=== PATIENT | male | born 1995 | race Caucasian/White ===

== ENCOUNTER 2024-10-26 17:21 | Emergency (ER) | payer OTHER, SELFPAY ==
--- NOTE | 2024-10-26 17:27 | ED_ITS ---
<Statement entered by Priscilla Talley DO - 10/26/24 23:14> I was consulted by the ADOLPH, and we discussed the complexity of the problems being addressed. I approved the treatment and management plan for this patient's care in the emergency department, thus performing a substantive portion of the medical decision making. Priscilla Talley DO Discharge Plan Disposition Patient Disposition: Home, Self-Care Condition: Good Prescriptions Prescriptions: New ondansetron 4 mg tablet,disintegrating 4 mg PO QID PRN (Reason: nausea and vomiting) Qty: 10 0RF No Action Mounjaro 2.5 mg/0.5 mL Pen Injector 2 mg SQ WEEKLY Referrals Follow up/Referrals: Provider,Referral, MD [Primary Care Provider] - See instructions Activity Restrictions/Add. Instructions Additional Instructions/Restrictions: As we discussed I recommend discontinuing the Mounjaro. I recommend taking Zofran at the first sign of nausea or abdominal discomfort. Reintroduce your diet slowly. Follow-up with your PCP within 48 hours for recheck sooner if you have new problems or return to the ER as needed. Clinical Impressions Clinical Impression: Abdominal pain Qualifiers: Abdominal location: upper abdomen, unspecified Qualified Code(s): R10.10 - Upper abdominal pain, unspecified Instructions Patient Instructions: DI for Acute Abdominal Pain Print Language Print Language: French Discharge ED Provider: Priscilla Talley General Adult HPI <FEROZ Weldon - Last Filed: 10/26/24 22:06> General Chief complaint: Abdominal Pain Stated complaint: abdominal pain Time Seen by Provider: 10/26/24 17:27 History of Present Illness HPI narrative: Patient presents for evaluation of acute upper abdominal pain. Patient has had 3 days of increasing consistent and persistent epigastric abdominal pain. Patient has been started on Mounjaro recently and took a shot on Friday. Patient reports that he has had epigastric abdominal pain and vomiting since that is intensified over the past 3 days. 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 He denies any fever chills hemoptysis hematochezia melena diarrhea but has had nausea and vomiting. Related Data Home Medications ?Medication ?Instructions ?Recorded ?Confirmed tirzepatide 2.5 mg/0.5 mL 2 mg SQ WEEKLY 10/26/24 10/26/24 subcutaneous pen injector ([place]) Previous Rx's ?Medication ?Instructions ?Recorded ondansetron 4 mg disintegrating 4 mg PO QID PRN nausea and 10/26/24 tablet vomiting #10 tabs Allergies Allergy/AdvReac Type Severity Reaction Status Date / Time Sulfa (Sulfonamide Allergy Blister Verified 10/26/24 17:48 Antibiotics) [facility] <FEROZ Weldon - Last Filed: 10/26/24 22:06> [facility] Disclaimer: The information contained in this section may have been updated after the patient was seen, as this information can be updated by other users. Social History Smoking Status: Never smoker alcohol intake: never current occupational status: employed Travel in the last 8 weeks: None <FEROZ Weldon - Last Filed: 10/26/24 22:06> ROS Obtained: Yes Systems reviewed as appropriate & no additional complaints except as documented Physical Exam <FEROZ Weldon - Last Filed: 10/26/24 22:06> General General appearance: alert and in no apparent distress Respiratory Respiratory exam: Present normal lung sounds bilaterally and accessory muscle use Cardiovascular Cardiovascular exam: Present regular rate Neurological Exam Neurological exam: Present alert and oriented X3 Medical Decision Making <FEROZ Weldon - Last Filed: 10/26/24 22:06> Medical Records Medical records reviewed: Yes I reviewed the patient's medical records. Screening: Per USPSTF and CDC recommendations, given the prevalence of disease in our region, it is our hospital?s policy to screen for HIV and viral Hepatitis for all patients aged 18 and over and those with ongoing risk factors. Cipriano Inquiry Pt receiving controlled substance: No Vital Signs: 10/26/24 17:31 10/26/24 18:03 10/26/24 18:31 Temperature 97.9 F Temperature Source Oral Pulse Rate 86 77 Pulse Rate [Right] 100 H Respiratory Rate 24 Blood Pressure 139/89 126/79 Blood Pressure [Right Arm] 158/95 H Blood Pressure Mean [Right Arm] 116 Blood Pressure Source Blood Pressure Position 02 Sat by Pulse Oximetry 100 98 96 Oxygen Delivery Method Room Air 10/26/24 19:00 10/26/24 19:45 Temperature 97.9 F Temperature Source Oral Pulse Rate 64 82 Pulse Rate [Right] Respiratory Rate 16 Blood Pressure 119/77 136/94 H Blood Pressure [Right Arm] Blood Pressure Mean [Right Arm] Blood Pressure Source Automatic Cuff Blood Pressure Position Supine 02 Sat by Pulse Oximetry 96 Oxygen Delivery Method Room Air Lab Data Lab results reviewed: Yes I reviewed the patient's lab results. Lab Results 10/26/24 17:45: WBC 11.2 H, RBC 6.78 H, Hgb 17.7, Hct 52.5 H, MCV 77.4 L, MCH 26.1 L, MCHC 33.7, RDW 15.9, Plt Count 232, MPV 10.3, Neut % (Auto) 70.8, Lymph % (Auto) 23.0, [place] % (Auto) 4.6, Eos % (Auto) 0.9, Baso % (Auto) 0.4, Neut # (Auto) 8.0 H, Lymph # (Auto) 2.6, [place] # (Auto) 0.5, Eos # (Auto) 0.1, Baso # (Auto) 0.1, PT 10.7, INR 0.97, Sodium 143, Potassium 4.1, Chloride 106, Carbon Dioxide 20 L, Anion Gap 21.1 H, BUN 14, Creatinine 1.10, Estimated Creat Clear 150, Estimated GFR 78, Est GFR ( Amer) 94, Glucose 112 H, Lactate 1.4, C alcium 10.6 H, Magnesium 1.9, Total Bilirubin 0.9, AST 33, ALT 35, Alkaline Phosphatase 86, Total Protein 8.4 H, Albumin 5.7 H, Globulin 2.7, A lbumin/Globulin Ratio 2.1 H, Lipase 96 10/26/24 17:45 10/26/24 17:45 Orders (Tests/Meds): ED MEDICATIONS Discontinued Medications Generic Name Dose Route Start Last Admin Trade Name Freq PRN Reason Stop Dose Admin Acetaminophen 1,000 mg 10/26/24 17:31 10/26/24 17:39 Acetaminophen 1,000mg/100ml Vial IV 10/26/24 17:32 1,000 mg ONCE ONE Administration Hydromorphone HCl 1 mg 10/26/24 17:31 10/26/24 17:39 Hydromorphone 2mg/Ml Syringe IV 10/26/24 17:32 1 mg ONCE ONE Administration Iopamidol 75 ml 10/26/24 18:05 10/26/24 18:06 Iopamidol-370 (76%);100ml Bottle IV 10/26/24 18:06 75 ml ONCE ONE Administration Promethazine HCl 12.5 mg 10/26/24 17:43 10/26/24 17:47 Promethazine Hcl 25mg/Ml 1ml Vial IV 10/26/24 17:44 12.5 mg ONCE ONE Administration Sodium Chloride 25 ml 10/26/24 17:43 10/26/24 17:47 Sodium Chloride 0.9% 25ml Bag IV 10/26/24 17:44 25 ml ONCE ONE Administration Sodium Chloride 10 ml 10/26/24 18:05 10/26/24 18:06 Sodium Chloride 0.9% 10ml Syr (Rad Only) IV 11/25/24 18:04 10 ml NEEDED PRN Administration Maintain IV Site ORDERS Category Date Time Status CT abdomen pelvis w con Stat Cat Scan 10/26/24 17:31 Completed CBC w/Auto Diff [Complete Blood Count Auto Diff] Stat Lab 10/26/24 17:45 Completed CMP [Comprehensive Metabolic Panel] Stat Lab 10/26/24 17:45 Completed INR [Prothrombin Time INR] Stat Lab 10/26/24 17:45 Completed Lactic Acid Stat Lab 10/26/24 17:45 Completed Lipase Stat Lab 10/26/24 17:45 Completed Magnesium Stat Lab 10/26/24 17:45 Completed HEART Score History (anamnesis): Slightly suspicious ECG: Normal Age: <45 years Risk factors: 3 or more risk factors Troponin: </= normal limit HEART Score: 2 Medical Decision Narrative: In summary patient is a 29-year-old male who presents to the emergency department for evaluation of epigastric abdominal pain. Patient is initially normotensive 158/95 slightly tachycardic at 100 normal sinus rhythm on the bedside monitor breathing 24 times a minute satting at 100% room air upon arrival, the temperature of 97.9. Physical exam is remarkable for an unwell appearing 29-year-old male who appears to be in acute pain. He is diaphoretic but breath sounds are clear and equal bilaterally to the bases without increased work of breathing or adventitious sounds. Patient has exquisite tenderness in the bilateral upper quadrants but more focally so in the epigastrium and left side. He has no rebound no guarding or rigidity. Bowel sounds normal active.. Differential diagnosis includes ACS versus esophagitis versus gastritis versus gastroparesis versus GLP-1 induced pancreatitis etc. Initial workup will be conducted with hematologic labs CT scan abdomen pelvis with contrast. Initial interventions include crystalloid bolus Zofran Dilaudid. Initial workup reviewed by me and actually his hematologic labs are nonactionable with a normal white count normal lipase and my informal interpretation Tatian of his CT scan abdomen pelvis does not show any acute processes including no pancreatitis or peripancreatic stranding or fluid collection.. Upon repeat evaluation patient actually had complete resolution of his pain after initial intervention and is able to tolerate oral intake now without nausea or vomiting.. Given this I have recommended the patient discontinue the GLP-1 and follow-up closely with his PCP for any continued new or worsening signs or symptoms. I have counseled the patient on dietary management and the fact that he still may have symptoms until the GLP-1 effects of Mounjaro wear off. I have sent a prescription for Zofran to his pharmacy. Patient verbalized understanding and agreement. <Priscilla Talley, - Last Filed: 10/26/24 20:23> Vital Signs: 10/26/24 17:31 10/26/24 18:03 10/26/24 18:31 Temperature 97.9 F Temperature Source Oral Pulse Rate 86 77 Pulse Rate [Right] 100 H Respiratory Rate 24 Blood Pressure 139/89 126/79 Blood Pressure [Right Arm] 158/95 H Blood Pressure Mean [Right Arm] 116 Blood Pressure Source Blood Pressure Position 02 Sat by Pulse Oximetry 100 98 96 Oxygen Delivery Method Room Air 10/26/24 19:00 10/26/24 19:45 Temperature 97.9 F Temperature Source Oral Pulse Rate 64 82 Pulse Rate [Right] Respiratory Rate 16 Blood Pressure 119/77 136/94 H Blood Pressure [Right Arm] Blood Pressure Mean [Right Arm] Blood Pressure Source Automatic Cuff Blood Pressure Position Supine 02 Sat by Pulse Oximetry 96 Oxygen Delivery Method Room Air Lab Data Lab Results 10/26/24 17:45: WBC 11.2 H, RBC 6.78 H, Hgb 17.7, Hct 52.5 H, MCV 77.4 L, MCH 26.1 L, MCHC 33.7, RDW 15.9, Plt Count 232, MPV 10.3, Neut % (Auto) 70.8, Lymph % (Auto) 23.0, [place] % (Auto) 4.6, Eos % (Auto) 0.9, Baso % (Auto) 0.4, Neut # (Auto) 8.0 H, Lymph # (Auto) 2.6, [place] # (Auto) 0.5, Eos # (Auto) 0.1, Baso # (Auto) 0.1, PT 10.7, INR 0.97, Sodium 143, Potassium 4.1, Chloride 106, Carbon Dioxide 20 L, Anion Gap 21.1 H, BUN 14, Creatinine 1.10, Estimated Creat Clear 150, Estimated GFR 78, Est GFR ( Amer) 94, Glucose 112 H, Lactate 1.4, C alcium 10.6 H, Magnesium 1.9, Total Bilirubin 0.9, AST 33, ALT 35, Alkaline Phosphatase 86, Total Protein 8.4 H, Albumin 5.7 H, Globulin 2.7, A lbumin/Globulin Ratio 2.1 H, Lipase 96 Orders (Tests/Meds): ED MEDICATIONS Discontinued Medications Generic Name Dose Route Start Last Admin Trade Name Anne-Marie PRN Reason Stop Dose Admin Acetaminophen 1,000 mg 10/26/24 17:31 10/26/24 17:39 Acetaminophen 1,000mg/100ml Vial IV 10/26/24 17:32 1,000 mg ONCE ONE Administration Hydromorphone HCl 1 mg 10/26/24 17:31 10/26/24 17:39 Hydromorphone 2mg/Ml Syringe IV 10/26/24 17:32 1 mg ONCE ONE Administration Iopamidol 75 ml 10/26/24 18:05 10/26/24 18:06 Iopamidol-370 (76%);100ml Bottle IV 10/26/24 18:06 75 ml ONCE ONE Administration Promethazine HCl 12.5 mg 10/26/24 17:43 10/26/24 17:47 Promethazine Hcl 25mg/Ml 1ml Vial IV 10/26/24 17:44 12.5 mg ONCE ONE Administration Sodium Chloride 25 ml 10/26/24 17:43 10/26/24 17:47 Sodium Chloride 0.9% 25ml Bag IV 10/26/24 17:44 25 ml ONCE ONE Administration Sodium Chloride 10 ml 10/26/24 18:05 10/26/24 18:06 Sodium Chloride 0.9% 10ml Syr (Rad Only) IV 11/25/24 18:04 10 ml NEEDED PRN Administration Maintain IV Site ORDERS Category Date Time Status CT abdomen pelvis w con Stat Cat Scan 10/26/24 17:31 Completed CBC w/Auto Diff [Complete Blood Count Auto Diff] Stat Lab 10/26/24 17:45 Completed CMP [Comprehensive Metabolic Panel] Stat Lab 10/26/24 17:45 Completed INR [Prothrombin Time INR] Stat Lab 10/26/24 17:45 Completed Lactic Acid Stat Lab 10/26/24 17:45 Completed Lipase Stat Lab 10/26/24 17:45 Completed Magnesium Stat Lab 10/26/24 17:45 Completed ECG Data Tracing #1: I reviewed this ECG and interpreted as documented below: Normal sinus rhythm with a ventricular rate of [address] changes concerning for ischemia. Normal intervals. ECG initial impression date: 10/26/24 ECG initial impression time: 18:00 Critical Care <FEROZ Weldon - Last Filed: 10/26/24 22:06> Critical Care Time Critical Care Time: Yes Attestation: On 10/26/24, the high probability of a clinically significant, sudden or life threatening deterioration of the following system(s) required my full and direct attention, intervention and personal management. The time I documented below is in addition to time spent performing reported procedures but includes the following listed in this critical care notation. Total Time Total Critical Care Time: 35
[2024-10-26 17:31] VITALS: BP 158/95; PULSE 100; RESP 24; TEMP 36.6; O2SAT 100; BMI 35.4
--- NOTE | 2024-10-26 17:31 | CT_ITS ---
PROCEDURE INFORMATION: Exam: CT Abdomen And Pelvis With Contrast Exam date and time: 10/26/2024 5:55 PM Age: 29 years old Clinical indication: Abdominal pain; Epigastric; Additional info: Epigastric abdominal pain TECHNIQUE: Imaging protocol: Computed tomography of the abdomen and pelvis with contrast. Radiation optimization: All CT scans at this facility use at least one of these dose optimization techniques: automated exposure control; mA and/or kV adjustment per patient size (includes targeted exams where dose is matched to clinical indication); or iterative reconstruction. Contrast material: ISOVUE; Contrast volume: 75 ml; Contrast route: IV; COMPARISON: No relevant prior studies available. FINDINGS: Liver: Fatty infiltration. Gallbladder and biliary ducts: Cholecystectomy. No significant ductal dilation. Pancreas: Unremarkable. No ductal dilation. Spleen: Mildly enlarged. Adrenal glands: No mass. Kidneys and ureters: Unremarkable. No significant hydronephrosis. Stomach and bowel: No definite mural thickening. No obstruction. Appendix: Normal caliber. No inflammation. Intraperitoneal space: No significant fluid collection. No definite free air. Vasculature: Unremarkable. No aneurysm. Lymph nodes: No pathologically enlarged lymph nodes. Urinary bladder: Borderline wall thickening, up to 4-5 mm. Incomplete distention, limiting evaluation. Reproductive: Unremarkable as visualized. 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 Soft tissues: Unremarkable. IMPRESSION: 1. Mild splenomegaly. 2. Cystitis vs underdistention. Correlate with urinalysis. 3. Hepatic steatosis.
--- NOTE | 2024-10-26 17:34 | ECG_ITS ---
APPROVED REPORT Exam: Resting ECG HR:92 bpm ECG Measurements Heart Rate 92 AXES MO 140 P 49 QRSd 98 QRS 72 QT 354 T 24 QTc 404 Conclusion SINUS RHYTHM NORMAL ECG Electronically signed by : QUYNH FREEMAN, 10/26/2024 23:41:09
--- NOTE | 2024-10-26 17:37 | PC.NURSE ---
FSBS IS 129.
[2024-10-26] MEDS: ACETAMINOPHEN 1,000MG/100ML VIAL 1000 MG IV (17:39)
[2024-10-26] MEDS: HYDROMORPHONE 2MG/ML SYRINGE 1 MG IV (17:39)
[2024-10-26] MEDS: SODIUM CHLORIDE 0.9% 25ML BAG 25 ML IV (17:47)
[2024-10-26] MEDS: PROMETHAZINE HCL 25MG/ML 1ML VIAL 12.5 MG IV (17:47)
[2024-10-26 18:03] VITALS: BP 139/89; PULSE 86; O2SAT 98
[2024-10-26] MEDS: SODIUM CHLORIDE 0.9% 10ML SYR (RAD ONLY) 10 ML IV (18:06)
[2024-10-26] MEDS: IOPAMIDOL-370 (76%);100ML BOTTLE 75 ML IV (18:06)
[2024-10-26 18:08] LABS: Basophils # 0.1 K/mm3 (0-0.2); Basophils % 0.4 % (0.1-2.0); Eosinophils # 0.1 K/mm3 (0.0-0.4); Eosinophils % 0.9 % (0.1-12.0); Hematocrit 52.5 % (42.0-52.0); Hemoglobin 17.7 g/dL (14.1-18.0); Lymphocytes # 2.6 K/mm3 (0.7-4.5); Mean Corpuscular HGB Conc 33.7 g/dL (31.8-35.4); Mean Corpuscular Hemoglobin 26.1 pg (27.0-31.2); Mean Corpuscular Volume 77.4 fl (80-94); Mean Platelet Volume 10.3 fl (7.4-10.4); Monocytes # 0.5 K/mm3 (0.1-1.0); Monocytes % 4.6 % (1.7-9.3); Neutrophils % 70.8 % (37.0-80.0); Platelet Count 232 K/mm3 (142-424); Red Blood Count 6.78 M/mm3 (4.60-6.20); Red Cell Distribution Width 15.9 % (11.5-17.5); White Blood Count 11.2 K/mm3 (4.8-10.8)
[2024-10-26 18:26] LABS: INR 0.97 (0.9-1.1); Prothrombin Time 10.7 seconds (9.2-12.1)
[2024-10-26 18:31] VITALS: BP 126/79; PULSE 77; O2SAT 96
[2024-10-26 18:47] LABS: Albumin Level 5.7 g/dl (3.5-5.0); Chloride 106 mmol/L (98-107); Potassium 4.1 mmoL/L (3.5-5.1); Sodium 143 mmol/L (136-145)
[2024-10-26 18:49] LABS: Blood Urea Nitrogen 14 mg/dl (9-20); Creatinine Clearance Estimated 150 mL/min (50-200); Estimated Glomerular Filt Rate 78 ml/min (>60); GFR (African American) 94 ML/MIN (>60); Lactic Acid 1.4 mmol/L (0.7-2.1)
[2024-10-26 18:50] LABS: Alanine Aminotransferase 35 U/L (12-78); Albumin/Globulin Ratio 2.1 (1.1-1.8); Alkaline Phosphatase 86 U/L (38-126); Anion Gap 21.1 mEq/L (5-15); Aspartate Amino Transferase 33 U/L (17-59); Bilirubin,Total 0.9 mg/dl (0.2-1.3); Calcium 10.6 mg/dl (8.4-10.2); Carbon Dioxide 20 mmol/L (22.0-30.0); Globulin 2.7 g/dL (1.3-3.2); Glucose 112 mg/dl (74-100); Lipase 96 U/L (23-300); Magnesium 1.9 mg/dl (1.6-2.3); Total Protein,Serum 8.4 g/dl (6.3-8.2)
[2024-10-26 19:00] VITALS: BP 119/77; PULSE 64; O2SAT 96
[2024-10-26 19:45] VITALS: BP 136/94; PULSE 82; RESP 16; TEMP 36.6; O2SAT 98
--- NOTE | 2024-10-26 19:46 | PC.NURSE ---
IV removed. Catheter tip intact. Bleeding controlled
== END 2024-10-26 19:55 | disposition home or self-care (01) ==
PROVIDERS: Physician Assistant; Emergency Provider Emergency Medicine
DX: R10.13 Epigastric pain (principal); R11.10 Vomiting, unspecified
CPT/HCPCS: 74177; 80053; 83605; 83690; 83735; 85025; 85610; 93005; 96374; 96375; 99291; J0131; J1171; J2550; Q9967

== ENCOUNTER 2024-10-27 12:41 | Emergency (ER) | payer OTHER, SELFPAY ==
[2024-10-27 13:01] VITALS: BP 161/97; PULSE 97; RESP 99; TEMP 36.9; O2SAT 98; BMI 35.4
--- NOTE | 2024-10-27 13:39 | ED_ITS ---
<Statement entered by Priscilla Talley DO - 10/27/24 23:41> I was consulted by the ADOLPH, and we discussed the complexity of the problems being addressed. I approved the treatment and management plan for this patient's care in the emergency department, thus performing a substantive portion of the medical decision making. Priscilla Talley DO Discharge Plan Disposition Patient Disposition: Home, Self-Care Condition: Good Prescriptions Prescriptions: No Action Mounjaro 2.5 mg/0.5 mL Pen Injector 2 mg SQ WEEKLY ondansetron 4 mg tablet,disintegrating 4 mg PO QID PRN (Reason: nausea and vomiting) Qty: 10 0RF Referrals Follow up/Referrals: Tonya Andrews MD [Primary Care Provider] - See instructions Activity Restrictions/Add. Instructions Additional Instructions/Restrictions: As we discussed I highly recommend complete cessation of marijuana forever. You are likely have recurrence no matter what form it comes in. You may utilize the hot showers if it gives you relief. I have also sent you in Zofran yesterday. If you have continued new or worsening signs or symptoms follow-up with your PCP or return to the ER as needed Clinical Impressions Clinical Impression: Abdominal pain, acute, Cannabis hyperemesis syndrome concurrent with and due to cannabis dependence Instructions Patient Instructions: DI for Acute Abdominal Pain Print Language Print Language: Bruneian Discharge ED Provider: David Burgess General Adult HPI <FEROZ Weldon - Last Filed: 10/27/24 23:34> General Chief complaint: Abdominal Pain Stated complaint: abd pain Time Seen by Provider: 10/27/24 13:39 Mode of Arrival: Ambulatory Source of Information: Patient Description of Symptoms (Recalled from ER Triage Doc. by RN): Pt presents for evaluation of RUQ abdominal since friday. Pt states he was seen here last night for it but had a negative workup. Pt states he has n/v. He has taken zofran. History of Present Illness HPI narrative: Patient presents for evaluation of upper abdominal pain. Patient was seen and evaluated by me yesterday for acute bilateral upper quadrant abdominal pain nausea and vomiting. Patient had relief and was tolerating oral intake upon discharge however he reports that it came back today. He denies any new findings but is intolerant of oral intake. Zofran has not helped. He denies fever chills hemoptysis hematochezia melena nausea vomit diarrhea. Patient's friend who accompanies him noted that the only thing that has helped him was taking hot showers today. Given that history I question the patient on his marijuana use and turns out he is actually been using marijuana daily with dispensary grade marijuana for his anxiety. He does not report an increase in his usage but has not used since he started having abdominal pain on Friday. Related Data Home Medications ?Medication ?Instructions ?Recorded ?Confirmed tirzepatide 2.5 mg/0.5 mL 2 mg SQ WEEKLY 10/26/24 10/26/24 subcutaneous pen injector (Mounjaro) Previous Rx's ?Medication ?Instructions ?Recorded ondansetron 4 mg disintegrating 4 mg PO QID PRN nausea and 10/26/24 tablet vomiting #10 tabs Allergies Allergy/AdvReac Type Severity Reaction Status Date / Time Sulfa (Sulfonamide Allergy Blister Verified 10/26/24 17:48 Antibiotics) [facility] <FEROZ Weldon - Last Filed: 10/27/24 23:34> [facility] Disclaimer: The information contained in this section may have been updated after the patient was seen, as this information can be updated by other users. Social History (Updated 10/26/24 @ 22:06 by FEROZ Weldon) Smoking Status: Current every day smoker alcohol intake: never current occupational status: employed Travel in the last 8 weeks: None Have you lived/traveled outside US in past 30 days?: No Contact w/someone who lives/traveled outside US past 30 days?: No Exposure to someone with infectious disease in past 14 days?: No Do you have a fever (greater than 100.4 F or 38 C)?: No Have you tested positive for COVID-19: No Exposed to someone with COVID-19 in past 14 days?: No Do you have a sore throat?: No Do you have a cough?: No Do you have any weakness?: No Do you have any diarrhea?: No Are you experiencing any unusual bleeding?: No Do you have any muscle aches/pain?: No Do you have any abdominal pain?: Yes Are you experiencing loss of taste or smell?: No <FEROZ Weldon - Last Filed: 10/27/24 23:34> ROS Obtained: Yes Systems reviewed as appropriate & no additional complaints except as documented Physical Exam <FEROZ Weldon - Last Filed: 10/27/24 23:34> General General appearance: alert and in no apparent distress Respiratory Respiratory exam: Present normal lung sounds bilaterally Cardiovascular Cardiovascular exam: Present regular rate Abdominal Exam Abdominal exam: Present rebound Neurological Exam Neurological exam: Present alert and oriented X3 Medical Decision Making <FEROZ Weldon - Last Filed: 10/27/24 23:34> Medical Records Medical records reviewed: Yes I reviewed the patient's medical records. Screening: Per USPSTF and CDC recommendations, given the prevalence of disease in our region, it is our hospital?s policy to screen for HIV and viral Hepatitis for all patients aged 18 and over and those with ongoing risk factors. Cipriano Inquiry Pt receiving controlled substance: No Vital Signs: 10/27/24 13:01 10/27/24 13:50 10/27/24 14:00 Temperature 98.5 F Temperature Source Oral Pulse Rate 95 H 85 Pulse Rate [Right] 97 H Respiratory Rate 99 H Blood Pressure 136/89 123/80 Blood Pressure [Right Arm] 161/97 H Blood Pressure Mean Blood Pressure Mean [Right Arm] 118 Blood Pressure Source [Right Arm] Automatic Cuff Blood Pressure Position [Right Arm] Sitting 02 Sat by Pulse Oximetry 98 99 99 Oxygen Delivery Method Room Air Room Air Room Air 10/27/24 14:30 10/27/24 16:54 Temperature 98.5 F Temperature Source Pulse Rate 77 77 Pulse Rate [Right] Respiratory Rate 18 Blood Pressure 126/92 H 126/92 H Blood Pressure [Right Arm] Blood Pressure Mean 99 Blood Pressure Mean [Right Arm] Blood Pressure Source [Right Arm] Blood Pressure Position [Right Arm] 02 Sat by Pulse Oximetry 97 Oxygen Delivery Method Room Air Lab Data Lab results reviewed: Yes I reviewed the patient's lab results. Lab Results 10/27/24 13:56: WBC 14.1 H D, RBC 6.90 H, Hgb 18.3 H, Hct 53.3 H, MCV 77.2 L, M CH 26.5 L, MCHC 34.3, RDW 16.3, Plt Count 261, MPV 10.4, Neut % (Auto) 72.2, Lymph % (Auto) 19.3, Josephine % (Auto) 7.3, Eos % (Auto) 0.4, Baso % (Auto) 0.4, N eut # (Auto) 10.2 H, Lymph # (Auto) 2.7, Josephine # (Auto) 1.0, Eos # (Auto) 0.1, Baso # (Auto) 0.1, Sodium 142, Potassium 3.9, Chloride 105, Carbon Dioxide 23, A nion Gap 17.9 H, BUN 19 D, Creatinine 1.30 H, Estimated Creat Clear 127, Estimated GFR 64, Est GFR ( Amer) 78, Glucose 130 H, Calcium 10.5 H, Total Bilirubin 0.7, AST 38, ALT 38, Alkaline Phosphatase 73, Total Protein 9.3 H, Albumin 5.8 H, Globulin 3.5 H, Albumin/Globulin Ratio 1.7, Lipase 66 10/27/24 13:56 10/27/24 13:56 Orders (Tests/Meds): ED MEDICATIONS Discontinued Medications Generic Name Dose Route Start Last Admin Trade Name Freq PRN Reason Stop Dose Admin Belladonna Alkaloids 60 ml 10/27/24 13:40 10/27/24 14:10 Belladonna Alkaloids 60 Ml Ml PO 10/27/24 13:41 60 ml ONCE ONE Administration Diphenhydramine HCl 50 mg 10/27/24 15:04 10/27/24 15:04 Diphenhydramine 50mg/Ml Vial IV 10/27/24 15:05 50 mg ONCE ONE Administration Droperidol 2.5 mg 10/27/24 14:00 10/27/24 14:44 Droperidol 5mg/2ml Vial IV 10/27/24 14:01 2.5 mg ONCE ONE Administration Ondansetron HCl 4 mg 10/27/24 13:40 10/27/24 14:10 Ondansetron 4mg/2ml Vial IV 10/27/24 13:41 4 mg ONCE ONE Administration ORDERS Category Date Time Status CBC w/Auto Diff [Complete Blood Count Auto Diff] Stat Lab 10/27/24 13:56 Completed CMP [Comprehensive Metabolic Panel] Stat Lab 10/27/24 13:56 Completed Lipase Stat Lab 10/27/24 13:56 Completed Medical Decision Narrative: David Burgess: I was consulted by the ADOLPH, and we discussed the complexity of the problems being addressed. I approved the treatment and management plan for this patient's care in the emergency department, thus performing a substantive portion of the medical decision making. Patient has intractable vomiting, initial workup no critical electrolyte abnormality, he does have a slight elevation in his creatinine without ASHLEIGH per rifle criteria. Has received droperidol and undergone p.o. trial when he had akathisia for which Benadryl was administered and repeat evaluation pending at time of transfer of care to the oncoming physician, Dr. Talley. Rene Karen: In summary patient is a 29-year-old male who presents to the emergency department for evaluation of recurrent right upper quadrant abdominal pain nausea vomiting. Patient is initially hypertensive with a blood pressure 161/97 heart rate of 97 sinus rhythm on the bedside monitor breathing 18 times a minute satting at 98% on room air upon arrival, afebrile at 98.5. Physical exam again is remarkable for mild bilateral upper quadrant tenderness without rebound or guarding or rigidity normal bowel sounds. Differential diagnosis includes cannabis hyperemesis syndrome versus possible gastroparesis versus pancreatitis. I considered other diagnoses including ulcer colitis however given the interview and his history that is classic for cannabis hyper emesis syndrome those other diagnoses were not pursued. Initial workup will be conducted with repeat hematologic labs.. Initial interventions include crystalloid bolus Zofran and GI cocktail. Initial workup reviewed by me shows that his hematologic labs are nonactionable and he continues to have an normal lipase. Upon repeat evaluation GI cocktail did not relieve his symptoms. Given this the patient was placed in observation status at 1430. Medical necessity for observational status is continuous cardiac monitoring and pulse oximetry after administration of droperidol. The patient was provided serial reevaluations while awaiting results. Patient had a reaction to the droperidol for which Benadryl was given with good response and cessation of his symptoms. After the 2-hour observation. Patient is tolerating p.o. and is completely symptom-free for both his abdominal pain nausea and symptoms of the droperidol that he had suffered earlier. Thus patient is appropriate for discharge with recommendations for complete marijuana cessation and close follow-up with his PCP for any continued new or worsening signs or symptoms understanding agreement. Total time in observation was 2 hours. <David Burgess MD - Last Filed: 10/27/24 15:10> Vital Signs: 10/27/24 13:01 10/27/24 13:50 10/27/24 14:00 Temperature 98.5 F Temperature Source Oral Pulse Rate 95 H 85 Pulse Rate [Right] 97 H Respiratory Rate 99 H Blood Pressure 136/89 123/80 Blood Pressure [Right Arm] 161/97 H Blood Pressure Mean Blood Pressure Mean [Right Arm] 118 Blood Pressure Source [Right Arm] Automatic Cuff Blood Pressure Position [Right Arm] Sitting 02 Sat by Pulse Oximetry 98 99 99 Oxygen Delivery Method Room Air Room Air Room Air 10/27/24 14:30 10/27/24 16:54 Temperature 98.5 F Temperature Source Pulse Rate 77 77 Pulse Rate [Right] Respiratory Rate 18 Blood Pressure 126/92 H 126/92 H Blood Pressure [Right Arm] Blood Pressure Mean 99 Blood Pressure Mean [Right Arm] Blood Pressure Source [Right Arm] Blood Pressure Position [Right Arm] 02 Sat by Pulse Oximetry 97 Oxygen Delivery Method Room Air Lab Data Lab Results 10/27/24 13:56: WBC 14.1 H D, RBC 6.90 H, Hgb 18.3 H, Hct 53.3 H, MCV 77.2 L, M CH 26.5 L, MCHC 34.3, RDW 16.3, Plt Count 261, MPV 10.4, Neut % (Auto) 72.2, Lymph % (Auto) 19.3, Josephine % (Auto) 7.3, Eos % (Auto) 0.4, Baso % (Auto) 0.4, N eut # (Auto) 10.2 H, Lymph # (Auto) 2.7, Josephine # (Auto) 1.0, Eos # (Auto) 0.1, Baso # (Auto) 0.1, Sodium 142, Potassium 3.9, Chloride 105, Carbon Dioxide 23, A nion Gap 17.9 H, BUN 19 D, Creatinine 1.30 H, Estimated Creat Clear 127, Estimated GFR 64, Est GFR ( Amer) 78, Glucose 130 H, Calcium 10.5 H, Total Bilirubin 0.7, AST 38, ALT 38, Alkaline Phosphatase 73, Total Protein 9.3 H, Albumin 5.8 H, Globulin 3.5 H, Albumin/Globulin Ratio 1.7, Lipase 66 Orders (Tests/Meds): ED MEDICATIONS Discontinued Medications Generic Name Dose Route Start Last Admin Trade Name Freq PRN Reason Stop Dose Admin Belladonna Alkaloids 60 ml 10/27/24 13:40 10/27/24 14:10 Belladonna Alkaloids 60 Ml Ml PO 10/27/24 13:41 60 ml ONCE ONE Administration Diphenhydramine HCl 50 mg 10/27/24 15:04 10/27/24 15:04 Diphenhydramine 50mg/Ml Vial IV 10/27/24 15:05 50 mg ONCE ONE Administration Droperidol 2.5 mg 10/27/24 14:00 10/27/24 14:44 Droperidol 5mg/2ml Vial IV 10/27/24 14:01 2.5 mg ONCE ONE Administration Ondansetron HCl 4 mg 10/27/24 13:40 10/27/24 14:10 Ondansetron 4mg/2ml Vial IV 10/27/24 13:41 4 mg ONCE ONE Administration ORDERS Category Date Time Status CBC w/Auto Diff [Complete Blood Count Auto Diff] Stat Lab 10/27/24 13:56 Completed CMP [Comprehensive Metabolic Panel] Stat Lab 10/27/24 13:56 Completed Lipase Stat Lab 10/27/24 13:56 Completed ECG Data Tracing #1: Independently interpreted by me rate is 85, rhythm is regular, axis borderline rightward deviated, no ST elevation in anatomical contiguous leads, QTc 404. Medical Decision Narrative: David Burgess: I was consulted by the ADOLPH, and we discussed the complexity of the problems being addressed. I approved the treatment and management plan for this patient's care in the emergency department, thus performing a substantive portion of the medical decision making. Patient has intractable vomiting, initial workup no critical electrolyte abnormality, he does have a slight elevation in his creatinine without ASHLEIGH per rifle criteria. Has received droperidol and undergone p.o. trial when he had akathisia for which Benadryl was administered and repeat evaluation pending at time of transfer of care to the oncoming physician, Dr. Talley. Rene Jones: Critical Care <David Burgess MD - Last Filed: 10/27/24 15:10> Critical Care Time Critical Care Time: No
[2024-10-27 13:50] VITALS: BP 136/89; PULSE 95; O2SAT 99
--- NOTE | 2024-10-27 13:59 | ECG_ITS ---
APPROVED REPORT Exam: Resting ECG HR:85 bpm ECG Measurements Heart Rate 85 AXES NV 137 P 37 QRSd 102 QRS 71 QT 362 T 49 QTc 404 Conclusion SINUS RHYTHM NORMAL ECG UNCONFIRMED REPORT Electronically signed by : BOB LAWRENCE, 10/28/2024 06:55:50
[2024-10-27 14:00] VITALS: BP 123/80; PULSE 85; O2SAT 99
[2024-10-27 14:08] LABS: Basophils # 0.1 K/mm3 (0-0.2); Basophils % 0.4 % (0.1-2.0); Eosinophils # 0.1 K/mm3 (0.0-0.4); Eosinophils % 0.4 % (0.1-12.0); Lymphocytes # 2.7 K/mm3 (0.7-4.5); Mean Corpuscular Hemoglobin 26.5 pg (27.0-31.2); White Blood Count 14.1 K/mm3 (4.8-10.8)
[2024-10-27] MEDS: BELLADONNA ALKALOIDS 60 ML ML PO (14:10)
[2024-10-27] MEDS: ONDANSETRON 4MG/2ML VIAL 4 MG IV (14:10)
[2024-10-27 14:18] LABS: Hematocrit 53.3 % (42.0-52.0); Lymphocytes % 19.3 % (10-50); Mean Corpuscular HGB Conc 34.3 g/dL (31.8-35.4); Mean Corpuscular Volume 77.2 fl (80-94); Mean Platelet Volume 10.4 fl (7.4-10.4); Monocytes % 7.3 % (1.7-9.3); Neutrophils # 10.2 K/mm3 (1.8-7.8); Neutrophils % 72.2 % (37.0-80.0); Platelet Count 261 K/mm3 (142-424); Red Cell Distribution Width 16.3 % (11.5-17.5)
[2024-10-27 14:19] LABS: Hemoglobin 18.3 g/dL (14.1-18.0)
[2024-10-27 14:30] VITALS: BP 126/92; PULSE 77; O2SAT 97
[2024-10-27 14:31] LABS: Albumin Level 5.8 g/dl (3.5-5.0); Chloride 105 mmol/L (98-107); Potassium 3.9 mmoL/L (3.5-5.1); Sodium 142 mmol/L (136-145)
[2024-10-27 14:33] LABS: Blood Urea Nitrogen 19 mg/dl (9-20); Creatinine Clearance Estimated 127 mL/min (50-200); Estimated Glomerular Filt Rate 64 ml/min (>60); GFR (African American) 78 ML/MIN (>60)
[2024-10-27 14:34] LABS: Alanine Aminotransferase 38 U/L (12-78); Albumin/Globulin Ratio 1.7 (1.1-1.8); Alkaline Phosphatase 73 U/L (38-126); Anion Gap 17.9 mEq/L (5-15); Aspartate Amino Transferase 38 U/L (17-59); Bilirubin,Total 0.7 mg/dl (0.2-1.3); Calcium 10.5 mg/dl (8.4-10.2); Carbon Dioxide 23 mmol/L (22.0-30.0); Globulin 3.5 g/dL (1.3-3.2); Glucose 130 mg/dl (74-100); Total Protein,Serum 9.3 g/dl (6.3-8.2)
[2024-10-27] MEDS: droPERidol 5MG/2ML VIAL 2.5 MG IV (14:44)
[2024-10-27] MEDS: diphenhydrAMINE 50MG/ML VIAL 50 MG IV (15:04)
[2024-10-27 15:44] LABS: Lipase 66 U/L (23-300)
[2024-10-27 16:54] VITALS: BP 126/92; PULSE 77; RESP 18; TEMP 36.9; O2SAT 97
== END 2024-10-27 16:55 | disposition home or self-care (01) ==
PROVIDERS: Physician Assistant; Emergency Provider Emergency Medicine; PCP Family Medicine
DX: F12.288 Cannabis dependence with other cannabis-induced disorder (principal); R10.11 Right upper quadrant pain; R11.2 Nausea with vomiting, unspecified; Z72.0 Tobacco use
CPT/HCPCS: 80053; 83690; 85025; 93005; 96374; 96375; 99283; J1200; J1790; J2405

== ENCOUNTER 2025-04-21 16:41 | Outpatient (CLI) | payer OTHER, SELFPAY ==
[2025-04-21 22:17] LABS: Albumin Level 4.9 g/dl (3.5-5.0); Chloride 105 mmol/L (98-107); Potassium 4.6 mmoL/L (3.5-5.1); Sodium 140 mmol/L (136-145)
[2025-04-21 22:19] LABS: Alanine Aminotransferase 26 U/L (12-78); Albumin/Globulin Ratio 2.0 (1.1-1.8); Alkaline Phosphatase 43 U/L (38-126); Anion Gap 12.6 mEq/L (5-15); Aspartate Amino Transferase 36 U/L (17-59); Bilirubin,Total 0.7 mg/dl (0.2-1.3); Blood Urea Nitrogen 11 mg/dl (9-20); Calcium 9.5 mg/dl (8.4-10.2); Carbon Dioxide 27 mmol/L (22.0-30.0); Creatinine,Serum 0.90 mg/dl (0.66-1.25); Estimated Glomerular Filt Rate 98 ml/min (>60); GFR (African American) 119 ML/MIN (>60); Globulin 2.5 g/dL (1.3-3.2); Glucose 88 mg/dl (74-100); Lipase 115 U/L (23-300); Total Protein,Serum 7.4 g/dl (6.3-8.2)
--- OUTSIDE RECORDS SUMMARY | 2025-04-22 12:34 | XMS_ITS | Clinical Summary ---
Author Organization Healthcare Address [address] [place] [address] Care Team Providers Care Electrification Adviser Name Role Phone Pcp, No Primary Care Provider Unavailabl e Allergies No known active allergies Social History Tobacco Use Types Packs/Day Years Used Date Smoking Tobacco: Every Day Alcohol Use Standard Drinks/Week Comments Yes 0 (1 standard drink = 0.6 oz pure alcohol) Alcoholic Drinks/day: Social alcohol use Sex and Gender Information Value Date Recorded Sex Assigned at Not on file Legal Sex Male 7:50 PM EDT Gender Identity Not on file Sexual Orientation Not on file Last Filed Vital Signs Vital Sign Reading Time Taken Comments Blood Pressure 146/83 04/04/2020 11:35 AM EDT Pulse 100 05/03/2020 2:07 PM EDT Temperature - - Respiratory Rate - - Oxygen Saturation - - Inhaled Oxygen Concentration - - Weight 115 kg (252 lb 10.4 oz) 05/03/2020 2:07 P M EDT Height 177.8 cm (5' 10 ) 04/04/2020 11:34 AM EDT Body Mass Index 36.25 04/04/2020 11:34 AM EDT Plan of Treatment Health Maintenance Due Date Last Done Comments [facility]-Depression Screening 1993 [facility]-/Child/Adol SDOH Screenings 1993 [facility]-Varicella Vaccines (1 of 2 - 13+ 2-dose series) 2006 [facility]- SDOH Screenings 2011 [facility]-Adult SDOH Screenings 2011 [facility]-Hepatitis B Vaccines (1 of 3 - 19+ 3-dose series) 2012 HPV Vaccines (1 - 3-dose SCD M series) 2020 [id number]-EBEPD-84 Vaccine (1 - 20 24-25 season) 2024 [facility]-Influenza Vaccine (#1) 2025 [facility]-DTaP,Tdap,and Td Vaccine s (2 - Td or Tdap) 12/16/2025 12/17/2015 [facility]-Zoster Vaccines (1 of 2) 2043 [facility]-Hepatitis A Vaccines Aged Out 03/12/2018 No longer eligible based on patient's age to complete this topic [facility]-HIB Vaccines Aged Out No longer e ligible based on patient's age to complete this topic [facility]-IPV Vaccines Aged Out No longer e ligible based on patient's age to complete this topic [facility]-Pneumococcal Vaccine: Pediatrics (0 to 5 Years) and At-Risk Patients (6 to 49 Years) Aged Out No long er eligible based on patient's age to complete this topic [facility]-Rotavirus Vaccines Aged Out No lo nger eligible based on patient's age to complete this topic Insurance [facility] MEDICAID Care Teams Electrification Adviser Relationship Specialty Start Date [place] [address] PCP - General Family Medicine 11/28/21
--- OUTSIDE RECORDS SUMMARY | 2025-04-22 12:34 | XMS_ITS | Clinical Summary ---
Author Organization [facility] nter Address [address] [place] [address] Care Team Providers Care Manager Testing Name Role Phone Tonya Andrews MD Primary Care Provider [phone] Allergies Active Allergy Reactions Criticality Noted Date Comments Sulfa Drugs 11/26/2022 Medications famotidine (Pepcid) 20 MG tablet Take 1 tablet (20 mg) by mouth in the morning and at bedtime. 05/21/2023 Active pantoprazole (ProtoNix) 40 MG EC tablet Take 1 tablet (40 mg) by mouth in the morning. 05/21/2023 Active Immunizations Immunization Administration Dates Next Due HepB-CpG 08/07/2023,06/27/2023 Social History Tobacco Use Types Packs/Day Years Used Date Smoking Tobacco: Every Day Cigarettes Smokeless Tobacco: Never Tobacco Cessation:Ready to Q uit: No; Counseling Given: Yes Alcohol Use Standard Drinks/Week Comments Yes 0 (1 standard drink = 0.6 oz pur e alcohol) Sex and Gender Information Value Date Recorded Sex Assigned at Male 10/31/2021 12:30 PM EST Legal Sex Male 12:30 PM EST Gender Identity Male 10/31/2021 12:30 PM EST Sexual Orientation Not on file Last Filed Vital Signs Vital Sign Reading Time Taken Comments Blood Pressure 112/79 11/11/2023 8:06 AM EDT Pulse 96 11/11/2023 8:06 AM EDT Temperature 36.9 C (98.4 F) 11/26/2022 2:55 PM EDT Respiratory Rate 18 11/11/2023 8:06 AM EDT Oxygen Saturation 94% 11/11/2023 8:06 AM EDT Inhaled Oxygen Concentration - - Weight 122 kg (269 lb 9.6 oz) 11/11/2023 8:06 AM EDT Height 175.3 cm (5' 9 ) 11/11/2023 8:06 AM EDT Body Mass Index 39.81 11/11/2023 8:06 AM EDT Plan of Treatment Health Maintenance Due Date Last Done Comments Varicella Vaccines (1 of 2 - 13+ 2-dose series) 2006 Pneumococcal Vaccine: Pediatrics (0 to 5 Years) and At-Risk Patients (6 to 49 Years) (1 of 2 - PCV) 2012 Influenza Vaccine (#1) 2025 DTaP/Tdap/Td Vaccines (3 - T d or Tdap) 12/16/2025 12/17/2015, 05/06/1997 MMR Vaccines Completed 05/06/1997 RSV under 20 month Aged Out No longer eligible based on patient's age to complete this topic Insurance MEDICAID Care Teams Manager Testing Relationship Specialty Start Date End Date Tonya Andrews MD [facility] [address] [place] [address] PCP - General Family Medicine 06/26/23
--- OUTSIDE RECORDS SUMMARY | 2025-04-22 12:34 | XMS_ITS | Encounter Summary ---
Author Organization [facility] nter Address [address] [place] [address] Care Team Providers Care Yield Improvement Engineer Name Role Phone Tonya Andrews MD Primary Care Provider [phone] Reason for Visit * Reason Comments Med Refill Encounter Details Date Type Department Care Team (Late st Contact Info) Description 09/13/2023 Refill [facility] [address] [place] [address] Ted Feng MD [address] [place] [address] Social History Tobacco Use Types Packs/Day Years Used Date Smoking Tobacco: Every Day Cigarettes Smokeless Tobacco: Never Alcohol Use Standard Drinks/Week Comments Yes 0 (1 standard drink = 0.6 oz pur e alcohol) Sex and Gender Information Value Date Recorded Sex Assigned at Male 10/31/2021 12:30 PM EST Legal Sex Male 12:30 PM EST Gender Identity Male 10/31/2021 12:30 PM EST Sexual Orientation Not on file documented as of this encounter Miscellaneous Notes * Telephone Encounter - Clarissa Deras MA - 09/18/2023 3:26 PM EST Patient completed therapy. documented in this encounter Plan of Treatment Not on file documented as of this encounter Visit Diagnoses Not on filedocumented in this encounter Care Teams Yield Improvement Engineer Relationship Specialty Start Date End Date Tonya Andrews MD [facility] [place] [address] [place] [address] PCP - General Family Medicine 06/26/23 documented as of this encounter
--- OUTSIDE RECORDS SUMMARY | 2025-04-22 12:34 | XMS_ITS | Encounter Summary ---
Author Organization [facility] nter Address [address] [place] [address] Care Team Providers Care Vba Developer Name Role Phone Tonya Andrews MD Primary Care Provider [phone] Reason for Visit * Reason Comments Med Refill Encounter Details Date Type Department Care Team (Late st Contact Info) Description 09/19/2023 Refill [facility] [address] [place] [address] Ted Feng MD [address] [place] [address] Social History Tobacco Use Types [...] Telephone Encounter - Clarissa Deras MA - 09/19/2023 2:03 PM EST Patient completed therapy. documented in this encounter Plan of Treatment Not on file documented as of this encounter Visit Diagnoses Not on filedocumented in this encounter Care Teams Vba Developer Relationship Specialty Start Date End Date Tonya Andrews MD [facility] [place] [address] [place] [address] PCP - General Family Medicine 06/26/23 documented as of this encounter
--- OUTSIDE RECORDS SUMMARY | 2025-04-22 12:34 | XMS_ITS | Encounter Summary ---
Author Organization [facility] nter Address [address] [place] [address] Care Team Providers Care Care Aide Name Role Phone Tonya Andrews MD Primary Care Provider [phone] Encounter Details Date Type Department Care Team (Late st Contact Info) Description 06/26/2023 Telephone [facility] [address] [place] [address] Trae Gooden, [address] [place] [address] Social History Tobacco Use Types [...] on file documented as of this encounter Plan of Treatment Not on file documented as of this encounter Visit Diagnoses Not on filedocumented in this encounter Care Teams Care Aide Relationship Specialty Start Date End Date Tonya Andrews MD [address] [place] [address] [place] [address] PCP - General Family Medicine 06/26/23 documented as of this encounter
== END 2025-04-21 23:59 | disposition home or self-care (01) ==
LOC: LAB.DROPOF 04-22 12:32
PROVIDERS: PCP Family Medicine; Visit Provider Family Medicine
DX: N17.9 Acute kidney failure, unspecified (principal); R10.10 Upper abdominal pain, unspecified
CPT/HCPCS: 80053; 83690

== ENCOUNTER 2025-04-22 17:51 | Outpatient (CLI) | payer OTHER, SELFPAY ==
--- OUTSIDE RECORDS SUMMARY | 2025-04-22 17:56 | XMS_ITS | Clinical Summary ---
Author Organization Healthcare Address [address] [place] [address] Care Team Providers Care Boot Trimmer Name Role Phone Pcp, No Primary Care [...] (1 - 3-dose SCD M series) 2020 [id number] Vaccine (1 - 20 24-25 season) 2024 [...] patient's age to complete this topic Insurance [facility] MEDICAID Care Teams Boot Trimmer Relationship Specialty Start [place] [address] PCP - General Family Medicine 11/28/21
--- OUTSIDE RECORDS SUMMARY | 2025-04-22 17:56 | XMS_ITS | Encounter Summary ---
Author Organization [facility] nter Address [address] [place] [address] Care Team Providers Care Track Repair Supervisor Name Role Phone Tonya Andrews MD Primary Care Provider [phone] Encounter Details Date Type Department Care Team (Late st Contact Info) Description 06/26/2023 Telephone [facility] [address] [place] [address] Trae Gooden, [address] [place] [address] Social History Tobacco Use Types [...] on filedocumented in this encounter Care Teams Track Repair Supervisor Relationship Specialty Start Date End Date Tonya Andrews MD [address] [place] [address] [place] [address] PCP - General Family Medicine 06/26/23 documented as of this encounter
--- OUTSIDE RECORDS SUMMARY | 2025-04-22 17:56 | XMS_ITS | Encounter Summary ---
Author Organization [facility] nter Address [address] [place] [address] Care Team Providers Care Canadian Bacon Tier Name Role Phone Tonya Andrews MD Primary Care Provider [phone] Reason for Visit * Reason Comments Med Refill Encounter Details Date Type Department Care Team (Late st Contact Info) Description 09/13/2023 Refill [facility] [address] [place] [address] Ted Feng MD [address] [place] [address] Social History Tobacco Use Types [...] on filedocumented in this encounter Care Teams Canadian Bacon Tier Relationship Specialty Start Date End Date Tonya Andrews MD [facility] [place] [address] [place] [address] PCP - General Family Medicine 06/26/23 documented as of this encounter
--- OUTSIDE RECORDS SUMMARY | 2025-04-22 17:56 | XMS_ITS | Encounter Summary ---
Author Organization [facility] nter Address [address] [place] [address] Care Team Providers Care Disc Inspector Name Role Phone Tonya Andrews MD Primary Care Provider [phone] Reason for Visit * Reason Comments Med Refill Encounter Details Date Type Department Care Team (Late st Contact Info) Description 09/19/2023 Refill [facility] [address] [place] [address] Ted Feng MD [address] [place] [address] Social History Tobacco Use Types [...] on filedocumented in this encounter Care Teams Disc Inspector Relationship Specialty Start Date End Date Tonya [place] MD [facility] [place] [address] [place] [address] PCP - General Family Medicine 06/26/23 documented as of this encounter
--- OUTSIDE RECORDS SUMMARY | 2025-04-22 17:56 | XMS_ITS | Clinical Summary ---
Author Organization [facility] nter Address [address] [place] [address] Care Team Providers Care Child And Youth Program Assistant Name Role Phone Tonya Andrews MD Primary Care Provider [phone] Allergies Active Allergy Reactions Criticality Noted Date [...] complete this topic Insurance MEDICAID Care Teams Child And Youth Program Assistant Relationship Specialty Start Date End Date Tonya Andrews MD [facility] [address] [place] [address] PCP - General Family Medicine 06/26/23
[2025-04-22 18:44] LABS: Hematocrit 49.9 % (42.0-52.0); Hemoglobin 16.7 g/dL (14.1-18.0); Immature Granulocytes % 0.4 %; Mean Corpuscular HGB Conc 33.5 g/dL (31.8-35.4); Mean Corpuscular Hemoglobin 26.9 pg (27.0-31.2); Mean Corpuscular Volume 80.5 fl (80-94); Nucleated Red Blood Cells % 0 %; Platelet Count 194 K/mm3 (142-424); Red Blood Count 6.20 M/mm3 (4.60-6.20); Red Cell Distribution Width-SD 41.3 fL; White Blood Count 13.7 K/mm3 (4.8-10.8)
[2025-04-22 18:56] LABS: Hemoglobin A1C 5.3 % (4.0-6.0)
== END 2025-04-22 23:59 | disposition home or self-care (01) ==
LOC: LAB.DROPOF 17:52
PROVIDERS: PCP Family Medicine; Visit Provider Family Medicine
DX: D72.829 Elevated white blood cell count, unspecified (principal); R73.09 Other abnormal glucose
CPT/HCPCS: 83036; 85025

== ENCOUNTER 2025-05-31 08:48 | Outpatient (CLI) | payer BC, SELFPAY ==
--- NOTE | 2025-05-31 08:53 | XR_ITS ---
FINAL REPORT CLINICAL HISTORY: Assessment of fecal burden FINDINGS: A single supine view the abdomen was obtained. The bowel gas pattern is nonspecific but nonobstructive. There is a normal amount of stool in the colon. There are no pathologic calcifications. Osseous structures are within normal limits. IMPRESSION: Nonspecific but nonobstructive bowel gas pattern. Reviewed, Interpreted and Dictated by Mayra Cunha MD Transcribed by Jo-Ann Walker Authenticated and [facility]
--- OUTSIDE RECORDS SUMMARY | 2025-05-31 08:59 | XMS_ITS | Clinical Summary ---
Author Organization [facility] nter Address [address] [place] [address] Care Team Providers Care Pediatric Social Worker Name Role Phone Tonya Andrews MD Primary Care Provider [phone] Allergies Active Allergy Reactions Criticality Noted Date [...] complete this topic Insurance MEDICAID Care Teams Pediatric Social Worker Relationship Specialty Start Date End Date Tonya Andrews MD [facility] [address] [place] [address] PCP - General Family Medicine 06/26/23
--- OUTSIDE RECORDS SUMMARY | 2025-05-31 08:59 | XMS_ITS | Encounter Summary ---
Author Organization [facility] nter Address [address] [place] [address] Care Team Providers Care Backer Up Name Role Phone Tonya Andrews MD Primary Care Provider [phone] Encounter Details Date Type Department Care Team (Late st Contact Info) Description 06/26/2023 Telephone [facility] [address] [place] [address] Trae Gooden, [address] [place] [address] Social History Tobacco Use Types [...] on filedocumented in this encounter Care Teams Backer Up Relationship Specialty Start Date End Date Tonya Andrews MD [address] [place] [address] [place] [address] PCP - General Family Medicine 06/26/23 documented as of this encounter
--- OUTSIDE RECORDS SUMMARY | 2025-05-31 08:59 | XMS_ITS | Encounter Summary ---
Author Organization [facility] nter Address [address] [place] [address] Care Team Providers Care Account Services Associate Name Role Phone Tonya Andrews MD Primary Care Provider [phone] Reason for Visit * Reason Comments Med Refill Encounter Details Date Type Department Care Team (Late st Contact Info) Description 09/19/2023 Refill [facility] [address] [place] [address] Ted Feng MD [address] [place] [address] Social History Tobacco Use Types [...] on filedocumented in this encounter Care Teams Account Services Associate Relationship Specialty Start Date End Date Tonya Andrews MD [facility] [address] [place] [address] PCP - General Family Medicine 06/26/23 documented as of this encounter
--- OUTSIDE RECORDS SUMMARY | 2025-05-31 08:59 | XMS_ITS | Clinical Summary ---
Author Organization [facility] Address [address] [place] [address] Care Team Providers Care Electrolysis Operator Name Role Phone Pcp, No Primary Care [...] (1 - 3-dose SCD M series) 2020 [id number] Vaccine (1 - 20 24-25 season) 2025 [facility]-Influenza Vaccine (#1) 2025 [facility]-DTaP,Tdap,and Td Vaccine [...] to complete this topic Insurance [facility] MEDICAID Care Teams Electrolysis Operator Relationship Specialty Start Date [place] [address] PCP - General Family Medicine 11/28/21
--- OUTSIDE RECORDS SUMMARY | 2025-05-31 08:59 | XMS_ITS | Encounter Summary ---
Author Organization [facility] nter Address [address] [place] [address] Care Team Providers Care Representative Phlebotomy Services Name Role Phone Tonya Andrews MD Primary Care Provider [phone] Reason for Visit * Reason Comments Med Refill Encounter Details Date Type Department Care Team (Late st Contact Info) Description 09/13/2023 Refill [facility] [address] [place] [address] Ted Feng MD [address] [place] [address] Social History Tobacco Use Types [...] on filedocumented in this encounter Care Teams Representative Phlebotomy Services Relationship Specialty Start Date End Date Tonya Andrews MD [facility] [place] [address] [place] [address] PCP - General Family Medicine 06/26/23 documented as of this encounter
== END 2025-05-31 23:59 | disposition home or self-care (01) ==
LOC: RAD 08:51
PROVIDERS: PCP Family Medicine; Visit Provider Internal Medicine Gastroenterology
DX: K59.00 Constipation, unspecified (principal)
CPT/HCPCS: 74018

== ENCOUNTER → 2025-07-07 10:56 | Day surgery (SDC) | payer BC, SELFPAY ==
--- NOTE | 2025-07-06 17:09 | EXP.HP ---
History of Present Illness *Admission Date: 07/07/25 *History of present illness: Mr. Andrews is a 30-year-old gentleman who is here for diagnostic EGD. He does have dyspepsia and GERD. The patient reports chronic longstanding epigastric abdominal pain and dyspepsia. This is worsening. He reports bloating, nausea and early satiety. He reports no belching but after witnessing him in the office, he did have witnessed belching. He reports heartburn. He has no dysphagia or globus sensation. The patient also reports loose stools with a lot of mucus with his bowel movements. He does report incomplete defecation with longer periods of time on the commode and excessive wiping. He reports no rectal bleeding, weight loss or family history of colitis, Crohn's disease or colon cancer. The patient has never had an upper endoscopy or colonoscopy. He does state that his epigastric abdominal pain occurs primarily postprandially. His nausea often occurs in the mornings. His CAT scan from October 2024 showed hepatic steatosis and mild splenomegaly. His liver chemistries have been normal. The examination is deemed medically necessary for diagnostic EGD. The patient has been seen, interviewed and examined prior to the procedure by both myself and the anesthesia provider. [facility] Disclaimer: The information contained in this section may have been updated after the patient was seen, as this information can be updated by other users. Medical History FHx: kidney cancer Surgical History History of kidney surgery History of cholecystectomy Family History Other Family history non-contributory Social History Smoking Status: Current every day smoker tobacco type: cigarettes alcohol intake: never substance use type: denies use current occupational status: employed Travel in the last 8 weeks?: None Review of Systems Review of Systems Review of systems (narrative): Negative *Cardiovascular Comments: Negative *Gastrointestinal Comments: Negative *Genitourinary Comments: Negative *Musculoskeletal Comments: Negative *Neurologic Comments: Negative Meds Home Medications and Allergies Home Medications ?Medication ?Instructions ?Recorded ?Confirmed ?Type ondansetron 4 mg disintegrating 4 mg PO QID PRN nausea and 10/26/24 05/31/25 Rx tablet vomiting #10 tabs famotidine 20 mg tablet 20 mg PO DAILY #90 tabs 04/21/25 05/31/25 Rx pantoprazole 40 mg tablet,delayed 40 mg PO ONCE #90 tabs 04/21/25 05/31/25 Rx release benzoyl peroxide 10 % topical topical 04/29/25 05/31/25 History cleanser clindamycin phosphate 1 % topical topical 04/29/25 05/31/25 History solution sucralfate 1 gram tablet (Carafate) 1 g PO QAC 4 weeks #84 tabs 04/29/25 05/31/25 Rx doxycycline hyclate 100 mg capsule 100 mg PO BID 05/31/25 05/31/25 History ibuprofen 800 mg tablet 800 mg PO PRN 05/31/25 05/31/25 History New Prescriptions to Start Prescriptions: Allergies Allergy/AdvReac Type Severity Reaction Status Date / Time Sulfa (Sulfonamide Allergy Blister Verified 05/31/25 07:58 Antibiotics) Exam *Routine HEENT Exam Head: Present normocephalic Eye: Present EOMI and PERRL ENT: Present mucous membranes moist *Routine Neck Exam Neck: Present supple *Routine Respiratory Exam Respiratory: Present CTA bilaterally *Routine Cardiovascular Exam Cardiovascular: Present RRR *Routine Abdominal Exam Abdominal: Present soft and normoactive bowel sounds; Absent tenderness *Routine Rectal Exam Rectal:: deferred *Routine Genitalia Exam Genitalia:: deferred *Routine Extremities Exam Extremities: Absent cyanosis, clubbing or edema *Routine Skin Exam Skin: Present warm; Absent rash *Routine Neurological Exam Neurological: Present alert and oriented X3 Assessment and Plan *Assessment and plan (1) Early satiety: Status: Acute Category: Medical Code(s): R68.81 - Early satiety (2) Nausea: Status: Acute Category: Medical Code(s): R11.0 - Nausea (3) Dyspepsia: Status: Acute Category: Medical Code(s): R10.13 - Epigastric pain (4) Epigastric pain: Status: Acute Category: Medical Code(s): R10.13 - Epigastric pain (5) Bloating: Status: Acute Category: Medical Code(s): R14.0 - Abdominal distension (gaseous) Plan A/P: 1. Epigastric abdominal pain/dyspepsia with nausea, fullness and bloating is the preprocedural diagnosis. The patient will be anesthetized/sedated using MAC sedation. The patient has been seen and examined. Cardiac and lung assessment prior to the examination is stable. Proceed with planned diagnostic EGD.
--- NOTE | 2025-07-07 06:59 | HMH.PROCNOTE ---
[facility] Procedure Note Date: 07/07/25 Procedure Note:: Upper Endoscopy Procedure Report: Esophagogastroduodenoscopy [] Endoscopost: Venkata Hernandez II, MD Referring Physician: [] Date of Procedure: July 07, 2025 Equipment: Olympus GIF-1100 standard upper endoscope Sedation: MAC sedation Indications: Mr. Andrews is a 30-year-old gentleman who is here for diagnostic EGD. He does have dyspepsia and GERD. The patient reports chronic longstanding epigastric abdominal pain and dyspepsia. This is worsening. He reports bloating, nausea and early satiety. He reports no belching but after witnessing him in the office, he did have witnessed belching. He reports heartburn. He has no dysphagia or globus sensation. The patient also reports loose stools with a lot of mucus with his bowel movements. He does report incomplete defecation with longer periods of time on the commode and excessive wiping. He reports no rectal bleeding, weight loss or family history of colitis, Crohn's disease or colon cancer. The patient has never had an upper endoscopy or colonoscopy. He does state that his epigastric abdominal pain occurs primarily postprandially. His nausea often occurs in the mornings. His CAT scan from October 2024 showed hepatic steatosis and mild splenomegaly. His liver chemistries have been normal. The examination is deemed medically necessary for diagnostic EGD. Procedure: Prior to the procedure, a history and physical exam was performed, and patient's medications and allergies were reviewed. The risks, benefits and alternatives of the sedation and procedure were discussed with the patient. All questions were answered and informed consent was obtained. The patient was brought to the procedure room. Patient identification and proposed procedure were verified by the physician and the nurse. The patient was placed in a left lateral decubitus position and the scope was passed under direct vision. Throughout the procedure, the patient's blood pressure, pulse, and oxygen saturations were monitored continuously. The upper GI endoscopy was accomplished without difficulty. The patient tolerated the procedure well. Findings: The scope was passed directly into the upper esophagus and advanced to the third portion of the duodenum. The post bulbar duodenum and duodenal bulb were normal with normal mucosa and conniventes. The scope was withdrawn through a normal duodenal bulb and pylorus into the stomach. []. The scope was then withdrawn into the esophagus. The remainder of the esophageal mucosa was normal. Impression: 1. [] Plan: []
== END ==
LOC: OUTP 10:57
PROVIDERS: PCP Family Medicine; Visit Provider Internal Medicine Gastroenterology
PROC: 0DJ08ZZ Inspection of Upper Intestinal Tract, Via Natural or Artificial Opening Endoscopic (ICD-10-PCS; principal; 2025-07-07 13:00)
DX: Z53.9 Procedure and treatment not carried out, unspecified reason